=== PATIENT | male | born 1980 | race Caucasian/White ===

== ENCOUNTER 2016-12-09 08:17 | Outpatient (CLI) | payer MEDICAID ==
[~2016-12-09] VITALS: Ht 177.8 cm; Wt 77.3 kg
[2016-12-09] MEDS ORDERED: LISINOPRIL-HCTZ1 T11 PO (12:09)
[2016-12-09] MEDS ORDERED: CHANTIX 1 MG TAB1 MG PO (12:09)
[2016-12-09] MEDS ORDERED: ENULOSE10 G/15 ML PO (12:09)
[2016-12-09] MEDS ORDERED: SUMATRIPTAN SUC25 MG PO (12:10)
[2016-12-09] MEDS ORDERED: OMEPRAZOLE20 M1 PO (12:11)
[2016-12-09 12:16] VITALS: BP 119/71; Ht 177.8 cm; Wt 77.3 kg
--- NOTE | 2016-12-09 12:30 | NUR ---
LESLIE RIDER PREPARED, VOICED UNDERSTANDING.
--- NOTE | 2016-12-09 12:45 | NUR ---
STATES HAD GOOD RESULTS FROM ENEMA, HAD APPROXIMATELY 500ML IN. STATES FEELS BETTER. DISCHARGE INSTRUCTIONS GIVEN. DISCHARGED HOME.
[2016-12-09] MEDS ORDERED: GLYCOLAX527 GM PO (17:53)
[2016-12-09] MEDS ORDERED: BISAC-EVAC10 MG/SUPP RC (17:54)
== END 2016-12-09 12:45 | disposition home or self-care (01) ==
LOC: D.OPS 08:17
DX: K59.00 Constipation, unspecified (principal)

== ENCOUNTER 2016-12-09 17:32 | Inpatient (IN) | payer MEDICAID ==
[~2016-12-09] VITALS: Ht 177.8 cm; Wt 80.9 kg
[~2016-12-09 17:32] MED LIST: CHANTIX 1 MG TAB1 MG PO; ENULOSE10 G/15 ML PO; LISINOPRIL-HCTZ1 T11 PO; OMEPRAZOLE20 M1 PO; SUMATRIPTAN SUC25 MG PO
[2016-12-09] MEDS ORDERED: GLYCOLAX527 GM PO (17:53)
[2016-12-09] MEDS ORDERED: BISAC-EVAC10 MG/SUPP RC (17:54)
--- NOTE | 2016-12-09 17:54 | NUR ---
RECEIVED TO ROOM 2204 AT THIS TIME. PT MADE NPO. 22G IV SITED TO PT'S LEFT FOREARM X1 ATTEMPT. ADMISSION HISTORY AND ASSESSMENT OBTAINED PER FLOWSHEET. CALL LIGHT IN REACH, ORIENTED TO ROOM. WILL CONTINUE WITH PLAN OF CARE.
[2016-12-09 18:07] LABS: BASOPHILS 0.4 % (0-2); EOSINOPHILS 1.6 % (0-7); HEMATOCRIT 39.2 % (42.0-54.0); HEMOGLOBIN 13.5 g/dL (13.5-17.5); IMMATURE GRANULOCYTES 0.2 % (0-5); LYMPHOCYTES 25.9 % (15-50); MCHC 34.4 g/dL (31.0-37.0); MCV 92.9 fL (80.0-100.0); MEAN PLATELET VOLUME 8.5 fL (7.4-10.4); MONOCYTES 7.8 % (2-11); NEUTROPHILS 64.1 % (40-80); RBC 4.22 10x6/uL (4.20-6.10); RDW 12.7 % (11.5-14.5); WBC 9.2 10x3/uL (4.8-10.8)
[2016-12-09 18:08] LABS: PLATELET COUNT 387 10x3/uL (130-400)
[2016-12-09 18:18] LABS: CALC OSMOLALITY 277 mosm/kg (275-300); CALCIUM 8.9 mg/dL (8.5-10.1); CARBON DIOXIDE 27.2 mmol/L (21.0-32.0); CHLORIDE - SERUM 103 mmol/L (98-107); CREATININE - SERUM 1.1 mg/dL (0.6-1.3); GLUCOSE 88 mg/dL (74-106); POTASSIUM - SERUM 3.7 mmol/L (3.5-5.1); SODIUM 139 mmol/L (136-145); UREA NITROGEN 15 mg/dL (7-18); eGFR NON AFRICAN AMERICAN 80 mL/min (90-120)
[2016-12-09 18:23] VITALS: BP 142/66; Ht 177.8 cm; Wt 80.9 kg
--- NOTE | 2016-12-09 19:25 | NUR ---
ALERT/AWAKE DENIES ANY NEEDS. IV IN L FA WITH NS INFUSING AT 75ML/HR. RATES PAIN LEVEL OF ABD AT 10 ON 0-10 NUMBER SCALE. REQUESTED PAIN MEDICATION. VISITOR PRESENT IN ROOM.
[2016-12-09 20:00] VITALS: BP 127/65
--- NOTE | 2016-12-09 20:29 | NUR ---
RECEIVED CALL BACK FROM DR FABIAN RE: PATIENT'S REQUEST FOR PAIN MEDICATION. ORDERED A UDS FIRST AND THEN O.K. TO GIVE TRAMADOL 50 MG Q4H PRN.
--- NOTE | 2016-12-09 21:55 | NUR ---
ADMIN SCHED PO MEDS AND TRAMADOL 50 MG PO PER REQUEST FOR C/O ABD PAIN. TOOK URINE SAMPLE TO LAB.
[2016-12-09 22:13] LABS: UDS - AMPHET NEGATIVE QUAL (NEGATIVE); UDS - BARB NEGATIVE QUAL (NEGATIVE); UDS - BENZO NEGATIVE QUAL (NEGATIVE); UDS - COCAINE NEGATIVE QUAL (NEGATIVE); UDS - METH NEGATIVE QUAL (NEGATIVE); UDS - OPIATE NEGATIVE QUAL (NEGATIVE); UDS - PCP NEGATIVE QUAL (NEGATIVE); UDS - THC NEGATIVE QUAL (NEGATIVE)
[2016-12-10] VITALS: BP 104/51
--- NOTE | 2016-12-10 03:15 | NUR ---
RESTING WITH EYES CLOSED. RR 18 EVEN U/L. NO SIGNS/SYMPTOMS OF PAIN OR DISCOMFORT. BED IS LOW, SR UP X2. CALL LIGHT IN REACH.
[2016-12-10 04:00] VITALS: BP 103/44
--- NOTE | 2016-12-10 07:00 | NUR ---
PT REC'D FROM JAIME MUR[facility]. CURRENTLY GONE FOR GASTROGRAFFIN. BED BEING CHANGED BY VALERIO HART.
[2016-12-10 07:49] VITALS: BP 101/47
--- NOTE | 2016-12-10 09:45 | NUR ---
PT REC'D BACK TO ROOM FROM X-RAY VIA WC. AAOX4. RATING CURRENT PAIN IN ABD 11/16. PRN TRAMADOL ADMINISTERED. WILL REASSESS. BOWEL SOUNDS HYPOACTIVE X4 QUADRANTS. BED LOW, CALL LIGHT IN REACH, DENIES NEEDS. CPOC.
--- NOTE | 2016-12-10 10:29 | HP ---
PATIENT: CECELIA LUNA MEDICAL RECORD: [id number] ACCOUNT: [id number] LOCATION:[facility] : 78 ADMISSION DATE: 12/09/16 HISTORY AND PHYSICAL EXAMINATION DATE OF ADMISSION TO OBSERVATION: 12/09/2016 CHIEF COMPLAINT: Constipation. HISTORY OF PRESENT ILLNESS: The patient presented to the office today with constipation issues for the last couple of weeks. He went to a walk-in clinic on [address] a couple days ago. He had x-rays there that reportedly suggested constipation. He tried stool softeners [id number] medicines such as mag citrate, Dulcolax, MiraLax. He states he also took lactulose. He saw Dr. Pollock yesterday who ordered soapsuds enema. He went to outpatient here at [place] and reportedly had some success though, he states the return from the rectum was mostly clear. He went home. He ate a sandwich, he started having "major" pain in the abdomen. The patient states all this may have started after he began working out in the gym and taking lots of Whey protein, which can cause constipation. He is directly admitted from my office for further treatment of painful constipation. PAST MEDICAL HISTORY: Migraine headaches, reflux, hypertension, tobacco dependence, _there has been a___ history of opioid dependence. He used to be on Suboxone, but is not on that now, stating he has not been taking any opioid medicines for months. PAST SURGICAL HISTORY: He has had no abdominal surgeries. HOME MEDICATIONS: Chantix 1 mg twice daily, sumatriptan 100 mg p.r.n. migraine headache, omeprazole 20 mg daily, lisinopril/HCTZ 20/12.5 twice a day. ALLERGIES: None known. SOCIAL HISTORY: . HABITS: Current every day smoker. Denies alcohol or drug use at this time. FAMILY HISTORY: Parents were alive, no significant history of diabetes, cancer or heart disease. REVIEW OF SYSTEMS: GENERAL: No major weight changes. HEENT: No particular sinus or allergy problems. RESPIRATORY: No history of emphysema or asthma. CARDIAC: No history of heart disease. GASTROINTESTINAL: He has had reflux problems. He has had a little constipation in the past, but nothing like this. GENITOURINARY: No significant problems there. MUSCULOSKELETAL: No significant arthritic aches and pains. NEUROLOGIC: He has migraine headaches. No seizures. PSYCHIATRIC: Denies depression or melancholia. PHYSICAL EXAMINATION: VITAL SIGNS: Temperature ____, pulse 81, respirations 18, blood pressure HISTORY AND PHYSICAL [id number] CECELIA LUNA 142/66. GENERAL: He does appear in mild distress due to pain. HEENT: Grossly within normal limits. NECK: Supple. No JVD or bruit. HEART: Regular rate and rhythm without murmur. LUNGS: Clear. ABDOMEN: Soft with mild diffuse tenderness. Bowel sounds are active. I do not appreciate any mass. RECTAL: Not done. IMAGING: KUB was done in the office showing stool throughout the colon. ASSESSMENT: Constipation. PLAN: We would admit, make n.p.o. We will get Gastrografin enema in the morning and check labs. Other tests and procedures as warranted. TRANSINT:[id number] Voice Confirmation ID: [id number] DOCUMENT ID: [id number] KIRIT FABIAN MD at 1029 CC: [id number] DICTATION DATE: 12/10/16 012 WELFARE ADMINISTRATOR: 12/10/16 0153 ADM IN [facility] [address] [place] [address]
--- NOTE | 2016-12-10 11:00 | NUR ---
ANSWERED CALL LIGHT IN PT ROOM. PT VISITOR HAD BROUGHT HIM FOOD, AND HE STATED HE HAD EATEN A SMALL AMOUNT OF IT, AND NOW FEELS NAUSEOUS. MALA CHACON ADMINISTERED. PT STATES HE THOUGHT HE COULD EAT AFTER HIS X-RAY, BUT I EXPLAINED TO HIM THAT HE WAS STILL NPO PER DR. FABIAN'S ORDER. PT STATES HE, "WILL NOT LEAVE UNTIL I KNOW WHATS GOING ON AND I'M EMPTY." WENT OVER X-RAY DRAFT WITH PT. STATED HE STILL WON'T LEAVE EVEN THOUGH DR. AFBIAN SAID.
[2016-12-10 12:18] VITALS: BP 118/61
[2016-12-10 14:43] VITALS: BP 117/50
--- NOTE | 2016-12-10 14:49 | NUR ---
ONE TIME DOSE OF ATIVAN ADMINISTERED PER ORDER. PT STATES HE FEELS BETTER NOW THAT HE HAS A BETTER IDEA OF WHAT THE PLAN IS FOR HIM. BED LOW, CALL LIGHT IN REACH, DENIES NEEDS. CPOC.
--- NOTE | 2016-12-10 16:30 | NUR ---
PT AOX4 RESP EVEN AND NONLABORED PT HERE FOR SEVERE PAINFUL CONSTIPATION FOR THIS VISIT IV TO LEFT FOREARM PATENT AND INTACT. PT DENIES NEEDS AT THIS TIME. SRX2 BED AT LOWEST SETTING CALL LIGHT WITHIN REACH WILL CONTINUE TO MONITOR
[2016-12-10 20:00] VITALS: BP 138/73
--- NOTE | 2016-12-10 23:32 | NUR ---
REC'D. AT [facility]. OF SHIFT IN [place] ASKING DIFFERENT VISITORS FOR CIGARETTES. ON RETURNING TO .DR MENDOZA HERE.PT. REQUESTING DIFFERENT PAIN MEDS OTHER THAN ULTRAM. DECLINED TO [facility]. MED,PT. UNHAPPY.SIGNIFICANT OTHER CALLED UPSET THAT PAIN MED.CURRENTLY ON NOT MANAGING PAIN.'STATES I'LL BE UP THERE'.[facility] HERE ASKING WHERE PT IS NOT IN ROOM. INFORMED IN WHEELCHAIR OUTSIDE SMOKING WITH A VISITOR.AT THAT TIME VISITOR AND PATIENT STOLLED THRU VISITOR STATES TO ANOTHER NURSE I'M GONNA REPORT THOSE NURSES FOR TALKING ABOUT MY BOYFRIEND(PATIENT)
[2016-12-11] VITALS: BP 119/60
--- NOTE | 2016-12-11 02:53 | NUR ---
PT IS ASLEEP AT THIS TIME. HE IS RESTING WELL WITH HIS GIRLFRIEND IN THE BED WITH HIM. RESPIRATIONS SEEM EASY AND NO DISTRESS NOTED. THE BED IS LOW, RAILS UP X'S 2 WITH THE CALL LIGHT AT HAND.
[2016-12-11 05:12] LABS: BASOPHILS 0.5 % (0-2); HEMATOCRIT 38.9 % (42.0-54.0); HEMOGLOBIN 13.3 g/dL (13.5-17.5); IMMATURE GRANULOCYTES 0.5 % (0-5); LYMPHOCYTES 38.7 % (15-50); MCH 31.7 pg (26.0-34.0); MCHC 34.2 g/dL (31.0-37.0); MCV 92.6 fL (80.0-100.0); MEAN PLATELET VOLUME 8.8 fL (7.4-10.4); MONOCYTES 8.3 % (2-11); PLATELET COUNT 431 10x3/uL (130-400); RDW 12.5 % (11.5-14.5); WBC 8.7 10x3/uL (4.8-10.8)
[2016-12-11 05:36] LABS: ALBUMIN 3.5 g/dL (3.4-5.0); ANION GAP 13.5 mmol/L (8-16); BILIRUBIN - TOTAL 0.64 mg/dL (0.2-1.3); CALCIUM 8.9 mg/dL (8.5-10.1); CREATININE - SERUM 1.2 mg/dL (0.6-1.3); POTASSIUM - SERUM 3.5 mmol/L (3.5-5.1)
--- NOTE | 2016-12-11 07:10 | NUR ---
PT REC'D FROM [facility]. RESTING IN BED WITH VISITOR IN BED WITH HIM. AAOX4. PIV TO L FA SALINE LOCKED. FREE OF REDNESS AND SWELLING. BOWEL SOUNDS ACTIVE X4 QUADRANTS. RATING CURRENT PAIN IN ABD 02/16. WILL REASSESS. STATED HE DID NOT HAVE ANY BM'S ON PM SHIFT. BED LOW, CALL LIGHT IN REACH, DENIES NEEDS. CPOC.
[2016-12-11 08:23] VITALS: BP 104/60
--- NOTE | 2016-12-11 11:15 | NUR ---
OFF FLOOR TO RADIOLOGY VIA .
[2016-12-11 12:55] VITALS: BP 115/61
--- NOTE | 2016-12-11 13:41 | NUR ---
FRIEND CAME TO DESK STATING CALL LIGHT HAS BEEN GOING OFF FOR 20 MINUTES BUT NOT ON AT THIS TIME. MACIEL AND OSWALDO PER PATIENT REQUEST. FRIENDS AND FAMILY IN ROOM. CALL LIGHT IN REACH.
[2016-12-11 15:29] VITALS: BP 112/43
[2016-12-11 19:00] VITALS: BP 97/61
--- NOTE | 2016-12-11 19:00 | NUR ---
PATIENT IN BED WATCHING TV. HOB 10 DEGREES. AAOX4. RR EVEN AND UNLABORED. 0 S/S OF DISTRESS. STATES PAIN IS AN 8/10. IV TO LEFT FA PATENT WITH NO REDNESS OR SWELLING. SRX2. BED LOW. CALL LIGHT WITHIN REACH.
--- NOTE | 2016-12-11 19:40 | NUR ---
ULTRAM GIVEN FOR PAIN. WILL REASSESS.
--- NOTE | 2016-12-11 21:40 | NUR ---
NIGHTTIME MEDICATIONS ADMINISTERED. NORCO GIVEN FOR PAIN.
--- NOTE | 2016-12-11 23:05 | NUR ---
IV TO LEFT FA INFILTRATED. CATHETER REMOVED WITH TIP INTACT. RESITED TO LEFT FA WITH 22 GAUGE. ZOFRAN GIVEN FOR NAUSEA.
[2016-12-12] VITALS: BP 135/52
--- NOTE | 2016-12-12 01:45 | NUR ---
NORCO GIVEN FOR PAIN. WILL REASSESS.
[2016-12-12 04:00] VITALS: BP 117/66
--- NOTE | 2016-12-12 05:30 | NUR ---
NORCO GIVEN FOR PAIN. WILL REASSESS. NO OTHER NEEDS.
[2016-12-12 06:16] LABS: CALC OSMOLALITY 276 mosm/kg (275-300); CALCIUM 8.5 mg/dL (8.5-10.1); CARBON DIOXIDE 28.5 mmol/L (21.0-32.0); CHLORIDE - SERUM 104 mmol/L (98-107); CREATININE - SERUM 1.1 mg/dL (0.6-1.3); GLUCOSE 93 mg/dL (74-106); POTASSIUM - SERUM 3.7 mmol/L (3.5-5.1); SODIUM 140 mmol/L (136-145); eGFR NON AFRICAN AMERICAN 80 mL/min (90-120)
[2016-12-12 06:18] LABS: UREA NITROGEN 7 mg/dL (7-18)
[2016-12-12 07:45] VITALS: BP 117/68
--- NOTE | 2016-12-12 09:35 | NUR ---
PATIENT RATED PAIN A 7/10 IN LEFT UPPER QUAD OF ABDOMEN, STABBING PAIN. ADMINISTERED NORCO WITH A SIP OF WATER. PATIENT DENIES NEEDS.
[2016-12-12 11:26] VITALS: BP 131/71
--- NOTE | 2016-12-12 12:07 | NUR ---
PATIENT REQUESTING MEDICATION FOR ANXIETY, STATED HE FEELS VERY ANXIOUS. CALLED 'S OFFICE. SPOKE WITH HIS NURSE ANGELA, SHE SAID SHE WILL GIVE THE MESSAGE TO JOSE.
--- NOTE | 2016-12-12 13:48 | NUR ---
* Is the patient Alert and Oriented? Yes 0 * How many steps to enter\exit or inside your home? 3 0 * PCP JOSE 0 * Pharmacy [facility] [address] 0 * Preadmission Environment Home with Family 0 * ADLs Independent 0 * Equipment None 0 * List name and contact numbers for known caregivers / representatives who currently or will assist patient after discharge: PHILIPPE COLECINELUZR-[phone] 0 * Community resources currently utilized None 0 * Additional services required to return to the preadmission environment? No 0 * Can the patient safely return to the preadmission environment? Yes 0 * Has this patient been hospitalized within the prior 30 days at any hospital? No 0 Grand Total: 0 Patient Name: CECELIA LUNA Admission Status: Elective Accout number: [id number] Admission Date: 12-11-2016 : 1980 Admission Diagnosis: Attending: KOLE Current LOS: 1 Anticipated DC Date: 12-14-2016 Planned Disposition: Home Primary Insurance: [facility] [employer] [place] Discharge Planning Comments: CM met with patient to assess discharge planning/needs. Patient lives at home with his girlfriend (Philippe Cole) [phone] who will also drive him home. 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 Patient denies any HH needs at this time and does not think he will need any when he goes home. CM will continue to follow and assist as needed with discharge planning/needs. PCP: Jose Pharmacy: [facility] [address] ([phone]) girlfriend Professor Of Communication And Writing: Edwina Santiago
[2016-12-12 17:30] VITALS: BP 130/70
[2016-12-12 20:00] VITALS: BP 120/61
--- NOTE | 2016-12-12 22:30 | NUR ---
PATIENT C/O SEVERE ABD PAIN. PT HAS HAD 2 LARGE CUPS OF COFFEE SEVERAL PADMA CRACKERS AND PEANUT BUTTER AND SPRITE SO FAR THIS SHIFT. PRN NORCO GIVEN ORDERED. SCHEDULED MEDS GIVEN. DENIES ANY OTHER NEEDS AT THIS TIME. BED LOW. CALL LIGHT IN REACH
--- NOTE | 2016-12-13 06:47 | NUR ---
PT DISCONNECTED HIS IV ON HIS OWN. IV LEFT OFF AT PT REQUEST.
[2016-12-13 09:03] VITALS: BP 107/52
[2016-12-13 12:39] VITALS: BP 110/56
[2016-12-13 16:46] VITALS: BP 130/57
--- NOTE | 2016-12-13 19:58 | OP ---
PATIENT NAME: CECELIA LUNA MEDICAL RECORD: [id number] :[birth year] LOCATION:[facility] ADMISSION DATE:12/11/16 SURGEON: MIGEL MENDOZA MD DATE OF OPERATION: 12/12/2016 PROCEDURE: EGD with biopsy and colonoscopy with ileoscopy. ATTENDING PHYSICIAN: Kosta Garcia MD INDICATIONS: Mr. Luna is a 36-year-old gentleman with a history of constipation, left side abdominal pain. Outpatient x-rays were suggestive of constipation. He had taken stool softeners, Dulcolax, MiraLax, lactulose and soapsuds enemas without relief. He had an inpatient Gastrografin enema that showed mild prominent fecal filling of the proximal colon, but significant constipation changes. He notes his pain is exacerbated by meals. CT scan of the abdomen and pelvis with contrast, 12/11/2016 showed no acute intra-abdominal pathology. He presents for inpatient EGD and colonoscopy to rule out upper or lower GI etiology of his left abdominal pain. PREMEDICATIONS: Total IV anesthesia (propofol 500 mg). INSTRUMENT: Olympus video gastroscope and [employer] / TLL video colonoscope. PROCEDURE AND FINDINGS: After receiving informed consent, Mr. Luna was first prepared for EGD. His posterior pharynx was anesthetized with Cetacaine spray, was placed in left lateral decubitus position, sedated as per anesthesia. After achieving adequate level of sedation, gastroscope was introduced per orally and advanced into the duodenum without difficulty. In the proximal esophagus, was a long inlet patch, which was biopsied. The Z line was irregular and there was mild erythema in the distal esophagus and biopsies were obtained. Small sliding type hiatal hernia was noted. Gastric mucosa was notable for a few linear shallow erosions in the antrum and antral biopsies were obtained to rule out Helicobacter pylori. There were no lesions seen in the body of the stomach along the incisura, in the cardia or fundus. Pylorus was patent and competent. There was mild patchy erythema in the duodenal bulb and the C loop of the duodenum. Biopsies were taken from the second portion of duodenum. The gastroscope was then withdrawn, he is prepared for colonoscopy. Digital rectal exam was performed that showed no external hemorrhoidal tags, fissures or fistulas. Normal sphincter tone. No palpable rectal masses. The colonoscope was introduced per rectally and advanced to the cecum without difficulty. The cecum, IC valve, and appendiceal orifice were identified. The terminal ileum was intubated and the distal small bowel mucosa was without erythema or ulcers. As the colonoscope was withdrawn, careful inspection was made of the ledezma of the colon. Overall mucosa had normal vascular and fold pattern. A fair prep was present. Multiple lavages were performed. A few diverticula were seen in the sigmoid colon. Retroflexion in rectum showed no significant internal hemorrhoids. Mr. Luna tolerated the procedure well, no immediate complications. ASSESSMENT: 1. Inlet patch in the proximal esophagus secondary to gastroesophageal reflux disease, status post biopsy. 2. Irregular Z line with mild distal esophagitis, status post biopsy. 3. Small sliding type hiatal hernia. OPERATIVE REPORT [id number] MILTON LUNADEVON [place] 4. Mild erosive gastritis. 5. Mild duodenitis. 6. Mild sigmoid diverticulosis coli. 7. Normal appearing terminal ileum. 8. No evidence of colitis. 9. Left side pain, perhaps atypical biliary colic. RECOMMENDATIONS: 1. Follow up histopathology. 2. Avoid nonsteroidal anti-inflammatory drugs. 3. PIPIDA with Gallbladder Ejection Fraction TRANSINT:[id number] Voice Confirmation ID: [id number] DOCUMENT ID: [id number] MIGEL MENDOZA MD at 1959 CC: KOSTA GARCIA MD [id number] DICTATION DATE: 12/12/161723 FLOOR SURFACER: 12/13/16 0033 ADM IN [facility] [address] [id number]
[2016-12-13] MEDS ORDERED: CARAFATE1 G PO (20:32)
[2016-12-13] MEDS ORDERED: PROTONIX40 MG PO (20:32)
--- NOTE | 2016-12-13 21:15 | NUR ---
PATIENT TAKEN DOWNSTAIRS VIA WHEELCHAIR BY ALVARO FRANCOIS TO FAMILY.
== END 2016-12-13 23:23 | disposition home or self-care (01) | DRG 392 ==
LOC: D.MS 17:32 → OBSVTIME 17:32 → D.MS 12-11 13:05
PROVIDERS: Internal Medicine Gastroenterology; ADMIT Family Medicine
PROC: 0DB98ZX Excision of Duodenum, Via Natural or Artificial Opening Endoscopic, Diagnostic (ICD-10-PCS; principal; 2016-12-11)
PROC: 0DJD8ZZ Inspection of Lower Intestinal Tract, Via Natural or Artificial Opening Endoscopic (ICD-10-PCS; principal; 2016-12-11)
PROC: 0DB68ZX Excision of Stomach, Via Natural or Artificial Opening Endoscopic, Diagnostic (ICD-10-PCS; 2016-12-11)
PROC: 0DB58ZX Excision of Esophagus, Via Natural or Artificial Opening Endoscopic, Diagnostic (ICD-10-PCS; 2016-12-11)
DX: K29.00 Acute gastritis without bleeding (principal); K59.00 Constipation, unspecified; K21.9 Gastro-esophageal reflux disease without esophagitis; I10 Essential (primary) hypertension; K21.0 Gastro-esophageal reflux disease with esophagitis; K44.9 Diaphragmatic hernia without obstruction or gangrene; K57.30 Diverticulosis of large intestine without perforation or abscess without bleeding

== ENCOUNTER 2017-06-05 16:42 | Emergency (ER) | payer MEDICAID ==
[2016-12-09 18:23] VITALS: BMI 25.5
[~2017-06-05 16:42] MED LIST changes: +BISAC-EVAC10 MG/SUPP RC; +CARAFATE1 G PO; +GLYCOLAX527 GM PO; +PROTONIX40 MG PO
== END 2017-06-05 21:34 | disposition home or self-care (01) ==
LOC: D.ER 16:42
DX: S39.012A Strain of muscle, fascia and tendon of lower back, initial encounter (principal); X58.XXXA Exposure to other specified factors, initial encounter; Y93.89 Activity, other specified; Y92.89 Other specified places as the place of occurrence of the external cause; M62.838 Other muscle spasm; I10 Essential (primary) hypertension

== ENCOUNTER 2018-01-06 21:09 | Emergency (ER) | payer MEDICAID ==
[~2018-01-06] VITALS: Ht 177.8 cm; Wt 87.5 kg
[2018-01-06 21:18] VITALS: Ht 177.8 cm; Wt 87.5 kg
[2018-01-06 22:58] VITALS: BP 135/73
== END 2018-01-06 22:59 | disposition home or self-care (01) ==
LOC: D.ER 21:09
DX: M54.16 Radiculopathy, lumbar region (principal); I10 Essential (primary) hypertension; F17.200 Nicotine dependence, unspecified, uncomplicated

== ENCOUNTER 2018-02-13 18:32 | Emergency (ER) | payer MEDICAID ==
[~2018-02-13] VITALS: Ht 177.8 cm; Wt 87.7 kg
[2018-02-13 19:14] VITALS: Ht 177.8 cm; Wt 87.7 kg
[2018-02-13] MEDS ORDERED: NORCO 7.5/325 T1 TA1 PO (19:23)
[2018-02-13 19:37] VITALS: BP 145/87
== END 2018-02-13 19:37 | disposition home or self-care (01) ==
LOC: D.ER 18:32
DX: M54.16 Radiculopathy, lumbar region (principal); I10 Essential (primary) hypertension